=== PATIENT | male | born 1965 | race Caucasian/White ===

== ENCOUNTER → 2017-10-05 | Outpatient (CLI) | payer BC ==
--- NOTE | 2017-10-06 16:11 | MR ---
EXAMINATION TYPE: MR shoulder RT wo con DATE OF EXAM: 10/05/2017 COMPARISON: NONE HISTORY: Rt shoulder pain x several years, no trauma TECHNIQUE: Multiplanar, multisequence imaging of the right shoulder is performed without contrast. FINDINGS: Rotator Cuff: Increased signal is present at the anterior aspect of the rotator cuff insertion, parti al tear may be present, there is a distal acromial spur Acromioclavicular Joint: Arthropathy change c auses some mass effect on the musculotendinous junction of supraspinatus Glenohumeral Joint: Intact Labrum: The labrum appears grossly intact given limitation of non-arthrogram study. Biceps Tendon: The long head of biceps is in normal location within bicipital groove. Bone marrow signal: No focal abnormal marrow signal is appreciated. Other: There is some fluid signal present in the subacromial subdeltoid bursa. IMPRESSION: Correlate for impingement. Tendinosis suspected, difficult to exclude a small partial tear of the ant erior aspect of the rotator cuff at its insertion.
== END | disposition home or self-care (01) ==
LOC: RADMRIMAIN 17:01
PROVIDERS: ATTEND Internal Medicine
DX: M25.511 Pain in right shoulder (principal)